=== PATIENT | female | born 1965 | race Caucasian/White ===

== ENCOUNTER 2020-06-11 18:00 | Emergency (ER) | payer MEDICARE, MEDICAID ==
[~2020-06-11] VITALS: Ht 157.5 cm; Wt 71.2 kg
[~2020-06-11 18:00] MED LIST: ALBU2.5V NEB; BISA10SU8 PR; IPRNEB IH; LORA2TAB80 PO; MOM30 PO; PANT-31 PO; PHEN50TA2 PO
[2020-06-11] MEDS ORDERED: LORazepam 1 MG TABLET PO ONE (20:45)
[2020-06-11 21:33] VITALS: BP 136/89
== END 2020-06-11 21:35 | disposition home or self-care (01) ==
LOC: EMS 18:00
DX: F41.9 Anxiety disorder, unspecified (principal); F20.9 Schizophrenia, unspecified; F17.210 Nicotine dependence, cigarettes, uncomplicated
CPT/HCPCS: 99406; Z7502; Z7610

== ENCOUNTER 2021-11-27 12:14 | Emergency (ER) | payer MEDICARE, MEDICAID ==
[~2021-11-27] VITALS: Ht 157.5 cm; Wt 75.0 kg
[2021-11-27] MEDS ORDERED: HydrOXYzine HCL 25 MG TABLET PO ONE (14:30)
[2021-11-27 15:53] VITALS: BP 112/64
== END 2021-11-27 15:40 | disposition home or self-care (01) ==
LOC: EMS 12:39
DX: F20.9 Schizophrenia, unspecified (principal); F41.9 Anxiety disorder, unspecified; Z79.899 Other long term (current) drug therapy; F17.290 Nicotine dependence, other tobacco product, uncomplicated
CPT/HCPCS: 99284; Z7502; Z7610